=== PATIENT | male | born 2000 | race Hispanic/Latino ===

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

== ENCOUNTER 2019-01-11 13:00 | Outpatient (RCR) | payer OTHER | END 2019-01-12 | LOC: PT 13:00 | PROVIDERS: ATTEND Specialist | DX: S83.512A Sprain of anterior cruciate ligament of left knee, initial encounter (principal); M25.562 Pain in left knee; M25.462 Effusion, left knee; M25.662 Stiffness of left knee, not elsewhere classified; M62.81 Muscle weakness (generalized) | CPT/HCPCS: 97139 ==

== ENCOUNTER → 2019-02-12 | Outpatient (RCR) | payer OTHER | LOC: PT 01-13 12:54 | PROVIDERS: ATTEND Specialist | DX: S83.512A Sprain of anterior cruciate ligament of left knee, initial encounter (principal); M62.81 Muscle weakness (generalized); M25.462 Effusion, left knee; M25.562 Pain in left knee; M25.662 Stiffness of left knee, not elsewhere classified ==

== ENCOUNTER 2019-03-03 12:57 | Outpatient (RCR) | payer OTHER | END 2019-03-14 | LOC: PT 12:57 | PROVIDERS: ATTEND Specialist | DX: S83.512A Sprain of anterior cruciate ligament of left knee, initial encounter (principal); M25.462 Effusion, left knee; M25.562 Pain in left knee; M25.662 Stiffness of left knee, not elsewhere classified; M62.81 Muscle weakness (generalized) | CPT/HCPCS: 97139 ==